=== PATIENT | male | born 1985 | race Caucasian/White ===

== ENCOUNTER 2016-07-26 17:35 | Emergency (ER) | payer MEDICAID, OTHER ==
[~2016-07-26] VITALS: Ht 167.6 cm; Wt 81.8 kg
[~2016-07-26 17:35] MED LIST: OLAN2.5T20 PO; PRAZ1CAP PO
[2016-07-26 17:38] VITALS: BP 145/89; PULSE 57; RESP 20; O2SAT 100
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
[2016-07-26] MEDS ORDERED: TdaP Vaccine 0.5 mL Inj IM ONE (19:53)
--- NOTE | 2016-07-26 20:53 | DRSVH ---
PROCEDURE: X-RAY RIGHT HAND, MINIMUM THREE VIEWS ([id number]) INDICATIONS: 30 year-old male with right hand pain after fall. TECHNIQUE: 3 views of the hand(s) acquired. COMPARISON: None. FINDINGS: Bones: No fractures or dislocations. Carpal bones are normally aligned. No suspicious bony lesions . Soft tissues: Punctate soft tissue foreign body lies superficial to the distal ulna. An additional la rger density projecting over the thenar eminence on the lateral projection is not reproduced on other views, therefore most consistent with film artifact rather than soft tissue foreign body. IMPRESSION: 1. No acute bony injuries of the right hand. 2. Punctate soft tissue foreign body superficial to the distal ulna. Dictated by: Moises Lim M.D. on 07/26/2016 at 20:51 Approved by: Moises Lim M.D. on 07/26/2016 at 20:51
--- NOTE | 2016-07-26 20:55 | DRSVH ---
PROCEDURE: X-RAY RIGHT ELBOW COMPLETE, MINIMUM THREE VIEWS ([id number]) INDICATIONS: 30 year-old male with right elbow pain after fall. TECHNIQUE: 3 views of the elbow were acquired. COMPARISON: None. FINDINGS: Bones: No fractures or dislocations. No suspicious bony lesions. Soft tissues: No elbow joint effusion. 6 x 3 mm ossified intra-articular body lies between the proxi mal ulna and radial head. IMPRESSION: 1. No acute bony injuries of the right elbow. 2. 6 x 3 mm ossified intra-articular body of uncertain donor site. Dictated by: Moises Lim M.D. on 07/26/2016 at 20:53 Approved by: Moises Lim M.D. on 07/26/2016 at 20:53
[2016-07-26] MEDS ORDERED: _HYDROcodone/APAP 5-325 mg Tablet PO PRN (21:10)
[2016-07-26 21:32] VITALS: BP 125/85; PULSE 60; RESP 20; O2SAT 99
== END 2016-07-26 21:38 | disposition home or self-care (01) ==
LOC: SED 17:35
DX: S61.411A Laceration without foreign body of right hand, initial encounter (principal); S63.612A Unspecified sprain of right middle finger, initial encounter; S40.851A Superficial foreign body of right upper arm, initial encounter; W01.0XXA Fall on same level from slipping, tripping and stumbling without subsequent striking against object, initial encounter; Y93.01 Activity, walking, marching and hiking; Y92.9 Unspecified place or not applicable; Y99.8 Other external cause status; Z87.891 Personal history of nicotine dependence; Z23 Encounter for immunization

== ENCOUNTER 2016-09-28 15:52 | Emergency (ER) | payer OTHER ==
[~2016-09-28] VITALS: Ht 167.6 cm; Wt 79.5 kg
[2016-09-28 16:05] VITALS: BP 144/90; PULSE 77; RESP 18; O2SAT 100
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
[2016-09-28 18:48] LABS: BASOPHILS % (AUTO) 0.4 % (0-3); EOSINOPHILS % (AUTO) 3.3 % (0-5); MONOCYTES % (AUTO) 9.2 % (4-12); Mean Corpuscular Hemoglobin 32.2 pg (27.0-35.0); Mean Corpuscular Volume 88.8 fL (81-100); NEUTROPHILS % (AUTO) 54.7 % (40-74); Platelet Count 208 bil/L (150-400)
[2016-09-28 19:29] VITALS: BP 122/74; PULSE 86; RESP 20; O2SAT 97
[2016-09-28 19:32] VITALS: BP 122/79; PULSE 86; RESP 20; O2SAT 97
== END 2016-09-28 19:33 | disposition home or self-care (01) ==
LOC: SED 15:52
DX: T76.21XA Adult sexual abuse, suspected, initial encounter (principal); Y04.8XXA Assault by other bodily force, initial encounter; Y92.009 Unspecified place in unspecified non-institutional (private) residence as the place of occurrence of the external cause; Y93.89 Activity, other specified; Y99.8 Other external cause status; Z62.810 Personal history of physical and sexual abuse in childhood; Z87.891 Personal history of nicotine dependence

== ENCOUNTER 2016-12-22 12:03 | Emergency (ER) | payer OTHER ==
[~2016-12-22] VITALS: Ht 167.6 cm; Wt 77.3 kg
[2016-12-22 12:08] VITALS: BP 125/82; PULSE 87; RESP 12; O2SAT 98
== END 2016-12-22 13:50 | disposition left against medical advice (07) ==
LOC: SED 12:03
DX: Z53.20 Procedure and treatment not carried out because of patient's decision for unspecified reasons (principal)

== ENCOUNTER 2016-12-25 16:40 | Emergency (ER) | payer OTHER ==
[~2016-12-25] VITALS: Ht 167.6 cm; Wt 77.3 kg
[2016-12-25 16:45] VITALS: BP 137/87; PULSE 101; RESP 16; O2SAT 97
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
== END 2016-12-25 19:25 | disposition home or self-care (01) ==
LOC: SED 16:40
DX: F43.0 Acute stress reaction (principal)